=== PATIENT | female | born 1970 | race African-American/Black ===

== ENCOUNTER 2017-07-02 16:03 | Outpatient (CLI) | payer OTHER | END 2017-07-02 16:04 | disposition home or self-care (01) | LOC: BICMAMMO 16:03 | PROVIDERS: ATTEND Physician Assistant | DX: Z12.31 Encounter for screening mammogram for malignant neoplasm of breast (principal) | CPT/HCPCS: 77063; 77067 ==

== ENCOUNTER 2018-05-02 09:43 | Emergency (ER) | payer OTHER ==
--- NOTE | 2018-05-02 10:49 | RAD ---
PORTABLE CHEST: Date: 05/02/18 PROVIDED CLINICAL HISTORY: Chest pain. FINDINGS: No comparisons. Cardiac and mediastinal silhouette is within normal limits. Lungs appear clear. No pleural fluid or p neumothorax apparent. IMPRESSION: No evidence for an acute cardiopulmonary process. POS: OFF
[2018-05-02 10:59] LABS: #Basophils 0.1 thou/uL (0.0-0.2); #Eosinphils 0.2 thou/uL (0.0-0.7); #Lymphocytes 3.2 thou/uL (1.20-3.40); #Monocytes 0.4 thou/uL (0.11-0.59); #Neutrophils 6.9 thou/uL (1.40-6.50); %Basophils 0.6 % (0.0-1.0); %Eosinophils 1.5 % (0.0-10.0); %Lymphocytes 30.1 % (21.0-51.0); %Monocytes 3.5 % (0.0-10.0); %Neutrophils 64.3 % (42.0-75.0); Hemoglobin 12.1 g/dL (12.0-16.0); Mean Corpuscular HGB CONC 31.8 g/dL (32.0-36.0); Mean Corpuscular Hemoglobin 31.6 pg (27.0-31.0); Mean Corpuscular Volume 99.4 fL (78.0-98.0); Mean Platelet Volume 6.7 fL (7.4-10.4); Platelet Count 422 thou/uL (130-400); RBC Distribution Width 12.3 % (11.5-14.5); Red Blood Cell (RBC) Count 3.82 mill/uL (4.20-5.40); White Blood Cell (WBC) Count 10.7 thou/uL (4.8-10.8)
[2018-05-02 11:27] LABS: ALT (SGPT) 17 U/L (8-55); AST (SGOT) 19 U/L (5-34); Albumin 3.9 g/dL (3.5-5.0); Alkaline Phosphatase 83 U/L (40-150); Anion Gap 11 mmol/L (10-20); BUN (Urea Nitrogen) 13 mg/dL (7.0-18.7); Bilirubin, Total 0.3 mg/dL (0.2-1.2); Calc. Creatinine Clearance 0 mL/min (70-130); Calcium 9.5 mg/dL (7.8-10.44); Carbon Dioxide 25 mmol/L (22-29); Chloride 107 mmol/L (98-107); Estimated GFR-MDRD Greater than 90; Globulin 3.9 g/dL (2.4-3.5); Glucose 99 mg/dL (70-105); Potassium 3.8 mmol/L (3.5-5.1); Protein, Total 7.8 g/dL (6.0-8.3); Sodium 139 mmol/L (136-145)
[2018-05-02] MEDS ORDERED: ISOVUE-370 76%-LOCM 1 ML ONE (12:04)
[2018-05-02 13:05] LABS: Troponin I Less than 0.010 ng/mL (< 0.028)
--- NOTE | 2018-05-02 13:35 | CT ---
CTA CHEST WITH CONTRAST AND 3D VOLUME RENDERING: INDICATION: Cough, persistent chest pain. FINDINGS: There is no large, central filling defect of the pulmonary arteries. Aortic contour is of normal iván iber without aneurysm, where visualized. There is a 6 mm noncalcified nodule of the left lung abutti ng the major fissure, within the superior segment left lower lobe. No effusion or pneumothorax. The re is scattered osseous degenerative change. IMPRESSION: 1. No acute pulmonary embolus. 2. 6 mm left lower lobe pulmonary nodule. Six-month followup CT thorax is warranted to provide cont inued assessment. POS: TOAN
--- NOTE | 2018-05-04 16:35 | EKG ---
Test Reason : Blood Pressure : / mmHG Vent. Rate : 085 BPM Atrial Rate : 085 BPM P-R Int : 146 ms QRS Dur : 092 ms QT Int : 398 ms P-R-T Axes : 044 008 009 degrees QTc Int : 473 ms Normal sinus rhythm Possible Left atrial enlargement Borderline ECG Confirmed by HOME LINDO DO ([id number]), editor trade journal LAUREN MALONE ([id number]) on 05/04/2018 4:34:38 PM Referred By: Confirmed By:HOME LINDO DO
== END 2018-05-02 13:45 | disposition home or self-care (01) ==
LOC: ERS 09:43
DX: I10 Essential (primary) hypertension (principal); R91.1 Solitary pulmonary nodule
CPT/HCPCS: 36415; 71045; 71275; 80053; 84484; 85025; 85379; 93005; Q9966

== ENCOUNTER 2018-11-11 12:17 | Outpatient (CLI) | payer OTHER ==
--- NOTE | 2018-11-11 13:17 | CT ---
CT CHEST WITHOUT CONTRAST: 11/11/2018 PROVIDED CLINICAL HISTORY: Pulmonary nodule. CORRELATION: CT angiogram chest performed 05/01/2018. FINDINGS: The heart, pericardium and great vessels are suboptimally evaluated in the absence of IV contrast mat erial but demonstrated an unremarkable unenhanced CT appearance. There is no evidence for thoracic lymph node enlargement with limitations due to lack of IV contrast. The airway appears patent and of normal caliber. There is no pleural fluid or pneumothorax apparent. Stable sub-6 mm average axial dimension superior segment left lower lobe pulmonary nodule abutting th e major fissure. Additional smaller, noncalcified nodules are occasionally seen in subpleural locati ons elsewhere, also stable. The lungs are free or significant opacity. The visualized portions of the upper abdomen demonstrate an unremarkable unenhanced CT appearance wit h the exception of post cholecystectomy change. The osseous structures demonstrate no concerning osteoblastic or osteolytic lesions. Thoracic spine disk degenerative changes are seen. IMPRESSION: Stable sub-6 mm average axial dimension, noncalcified left lower lobe pulmonary nodule. This does no t require followup in a low risk patient, per Fleischner criteria. POS: TPC
== END 2018-11-11 12:18 | disposition home or self-care (01) ==
LOC: BICCT 12:17
PROVIDERS: ATTEND Internal Medicine Critical Care Medicine
DX: R91.1 Solitary pulmonary nodule (principal)
CPT/HCPCS: 71250

== ENCOUNTER 2019-11-12 12:17 | Outpatient (CLI) | payer OTHER ==
--- NOTE | 2019-11-12 13:46 | CT ---
CT CHEST WITHOUT CONTRAST CLINICAL INDICATION: Follow-up pulmonary nodules. COMPARISON: Studies on 11/11/2018 and 05/02/2018 FINDINGS: Aorta: Limited evaluation due to lack of intravenous contrast, the thoracic aorta is normal in calibe r. Lungs: There is a stable pleural-based 6 mm nodular density along the superior aspect of the major fi ssure measuring 6 mm. This measured just less than 6 mm on the prior exam which may have been related to slice selection. 2 additional much smaller subcentimeter pleural-based nodular densities a re seen along the major fissure with a stable pleural-based less than 6 mm pleural-based nodular density anterolateral right upper lobe. A tiny approximately 3 mm pulmonary nodule is again seen at t he right lateral costophrenic angle. There has been interval development of minimal patchy nodular densities within the right upper lobe w hich may represent infectious or inflammatory process. Mild atelectasis is present at the posteromedial right lung base. No new pulmonary nodule or mass is seen, and there is no pleural effusion identified. Mediastinum: Limited evaluation due to lack of intravenous contrast, no enlarged lymph nodes are appr eciated. Thyroid gland: Calcified left lobe of thyroid gland. Thyroid gland is not well assessed due to overly ing artifact, there is suggestion of a small nodule in the left lobe of the thyroid gland measuring approximately 8 mm. Nonemergent thyroid ultrasound is recommended. Osseous structures: Mild degenerative changes in the spine. No suspicious lytic or sclerotic osseous lesion is identified. Chest wall: No abnormality visualized. Upper abdomen: Postcholecystectomy changes. IMPRESSION: 1. Stable 6 mm pleural-based nodule left lower lobe along the major fissure with additional much smal ler less than 6 mm nodular densities along the major fissure and anterolateral right lung base with a very tiny 3 mm pulmonary nodule right lung base. There has been no interval change in size of the n odular densities. Given that the nodule adjacent to the major fissure is just greater than 6 mm on the current examination, on additional one-year follow-up evaluation is recommended. 2. Hypodense lesion left lobe of thyroid gland. Thyroid ultrasound is recommended. 3. Ill-defined nodular groundglass densities in the right upper lobe which were not seen on the prior study and may be related to an infectious or inflammatory process.
== END 2019-11-12 12:18 | disposition home or self-care (01) ==
LOC: BICCT 12:17
PROVIDERS: ATTEND Internal Medicine Critical Care Medicine
DX: R91.8 Other nonspecific abnormal finding of lung field (principal); E07.9 Disorder of thyroid, unspecified
CPT/HCPCS: 71250

== ENCOUNTER 2019-12-23 07:00 | Outpatient (CLI) | payer OTHER ==
[2019-12-24 12:57] LABS: SARS-CoV-2 MS2 Positive; SARS-CoV-2 N Gene Negative; SARS-CoV-2 S Gene Negative; SARS-CoV-2 by NAA Not Detected (NotDetected); SARS-CoV-2 orf1ab Negative
== END 2019-12-23 07:01 | disposition home or self-care (01) ==
LOC: LABBT 07:00
PROVIDERS: ATTEND Internal Medicine Gastroenterology
DX: Z20.828 Contact with and (suspected) exposure to other viral communicable diseases (principal)
CPT/HCPCS: 87635; U0003

== ENCOUNTER 2019-12-26 05:59 | Day surgery (SDC) | payer OTHER ==
[2019-12-25 12:32] VITALS: BMI 46.6
--- NOTE | 2019-12-26 09:43 | OP ---
DATE OF PROCEDURE: 12/26/2019 PREPROCEDURE DIAGNOSIS: Colorectal cancer screening, average risk. POSTPROCEDURE DIAGNOSIS: Normal colonoscopy. RECOMMENDATIONS: Consider repeat colonoscopy in 10 years. ANESTHESIA: TIVA. PROCEDURE IN DETAIL: After the patient was informed of the risks, benefits, and possible complications of endoscopy including perforation, reaction to medication, and aspiration, informed consent was obtained. The patient was brought to endoscopy suite, where she was sedated in gradual fashion. Once she was comfortable, a rectal examination was performed, which was normal. The scope was advanced to the anal canal through the colon to the cecum, which was identified by the ileocecal valve and appendiceal orifice. The prep was good. Forward and retroflexed views in the right colon revealed no abnormalities. The remainder of the colon was normal. There were a few diverticula in the sigmoid colon. Retroflexed views in the rectum were normal. There were no evidence of polyps or masses seen. The scope was removed. The patient tolerated the procedure well. There were no complications. Job ID: [id number]
[2019-12-26] MEDS ORDERED: Lidocaine 1% PF 5 ML VIAL ONE (10:03)
[2019-12-26] MEDS ORDERED: PROPOFOL 200 MG/20 ML VIAL ONE (10:04)
== END 2019-12-26 09:45 | disposition home or self-care (01) ==
LOC: SDC 05:59
PROVIDERS: ATTEND Internal Medicine Gastroenterology
PROC: 0DJD8ZZ Inspection of Lower Intestinal Tract, Via Natural or Artificial Opening Endoscopic (ICD-10-PCS; principal; 2019-12-26)
DX: Z12.11 Encounter for screening for malignant neoplasm of colon (principal); K57.30 Diverticulosis of large intestine without perforation or abscess without bleeding; I10 Essential (primary) hypertension; Z79.899 Other long term (current) drug therapy
CPT/HCPCS: J2704

== ENCOUNTER 2020-10-28 11:06 | Outpatient (CLI) | payer OTHER ==
[2020-10-28 12:49] LABS: #Basophils 0.1 10x3/uL (0.0-0.2); #Eosinphils 0.2 10x3/uL (0.0-0.5); #Monocytes 0.4 10x3/uL (0.0-1.1); #Neutrophils 6.3 10x3/uL (1.5-8.4); %Basophils 0.6 % (0.0-2.0); %Eosinophils 2.2 % (0.0-6.0); %Lymphocytes 33.5 % (18.0-47.0); %Monocytes 3.7 % (0.0-10.0); %Neutrophils 59.3 % (40.0-75.0); Hemoglobin 11.9 g/dL (12.0-15.5); Mean Corpuscular Hemoglobin 31.7 pg (27.0-33.0); Mean Corpuscular Volume 96.3 fl (81.6-98.3); Mean Platelet Volume 9.5 fl (7.4-10.4); Platelet Count 398 10x3/uL (150-450); RBC Distribution Width 13.6 % (11.5-14.5); Red Blood Cell (RBC) Count 3.75 10x6/uL (3.90-5.03); White Blood Cell (WBC) Count 10.7 10x3/uL (3.5-10.5)
[2020-10-28 23:34] LABS: SARS-CoV-2 PCR by NAA Not Detected (NotDetected)
== END 2020-10-28 11:07 | disposition home or self-care (01) ==
LOC: LABBT 11:06
PROVIDERS: ATTEND Orthopaedic Surgery Hand Surgery
DX: Z01.812 Encounter for preprocedural laboratory examination (principal); G56.01 Carpal tunnel syndrome, right upper limb; Z20.822 Contact with and (suspected) exposure to COVID-19
CPT/HCPCS: 85025; U0003; U0005

== ENCOUNTER 2020-11-01 12:46 | Day surgery (SDC) | payer OTHER ==
[2020-10-29 09:51] VITALS: BMI 45.8
[2020-11-01] MEDS ORDERED: Fentanyl 100 MCG/2 ML VIAL ONE (15:07)
[2020-11-01] MEDS ORDERED: Midazolam HCl 2 mg/2 ml Vial ONE (15:07)
[2020-11-01] MEDS ORDERED: Dexamethasone 20 MG/5 ML VIAL ONE (15:33)
[2020-11-01] MEDS ORDERED: Ondansetron PF 4 MG/2 ML Vial ONE (15:33)
[2020-11-01] MEDS ORDERED: PROPOFOL 200 MG/20 ML VIAL ONE (15:33)
[2020-11-01] MEDS ORDERED: Lidocaine 1% PF 5 ML VIAL ONE (15:33)
[2020-11-01] MEDS ORDERED: Ketorolac Tromethamine 30 MG/ML VIAL ONE (16:47)
[2020-11-01] MEDS ORDERED: HYDROcodone/Acetaminophen 5/325 mg Tablet ONE (17:41)
== END 2020-11-01 17:52 | disposition home or self-care (01) ==
LOC: SDC 12:46
PROVIDERS: ATTEND Orthopaedic Surgery Hand Surgery
PROC: 01N50ZZ Release Median Nerve, Open Approach (ICD-10-PCS; principal; 2020-11-01)
DX: G56.01 Carpal tunnel syndrome, right upper limb (principal); G56.21 Lesion of ulnar nerve, right upper limb; G54.0 Brachial plexus disorders; I10 Essential (primary) hypertension; Z79.899 Other long term (current) drug therapy
CPT/HCPCS: J0690; J1100; J1885; J2250; J2405; J2704; J3010

== ENCOUNTER 2021-01-03 08:32 | Outpatient (CLI) | payer OTHER | END 2021-01-03 08:33 | disposition home or self-care (01) | LOC: BICCT 08:32 | PROVIDERS: ATTEND Internal Medicine Critical Care Medicine | DX: Z12.31 Encounter for screening mammogram for malignant neoplasm of breast (principal); R91.8 Other nonspecific abnormal finding of lung field | CPT/HCPCS: 71250; 77063; 77067 ==

== ENCOUNTER 2022-06-19 11:42 | Outpatient (CLI) | payer BC | END 2022-06-19 11:43 | disposition home or self-care (01) | LOC: BICULT 11:42 | PROVIDERS: ATTEND Physician Assistant | DX: E04.2 Nontoxic multinodular goiter (principal) | CPT/HCPCS: 76536 ==

== ENCOUNTER 2023-01-02 09:03 | Outpatient (CLI) | payer BC | END 2023-01-02 09:04 | disposition home or self-care (01) | LOC: NM 09:03 | PROVIDERS: ATTEND Internal Medicine Endocrinology, Diabetes & Metabolism | DX: E05.80 Other thyrotoxicosis without thyrotoxic crisis or storm (principal); R94.6 Abnormal results of thyroid function studies | CPT/HCPCS: 78014; A9516 ==

== ENCOUNTER 2023-01-26 11:30 | Outpatient (CLI) | payer BC ==
[2023-01-26 12:44] LABS: BHCG - Serum Negative (NEGATIVE); Pregs Control Background? CLEAR/WHITE (CLR/WHITE); Pregs Control Bar Appear? YES (CONTROL BAR)
== END 2023-01-26 11:31 | disposition home or self-care (01) ==
LOC: NM 11:30
PROVIDERS: ATTEND Internal Medicine Endocrinology, Diabetes & Metabolism
DX: E05.00 Thyrotoxicosis with diffuse goiter without thyrotoxic crisis or storm (principal)
CPT/HCPCS: 79005; 84703; A9517

== ENCOUNTER 2023-02-07 09:48 | Outpatient (CLI) | payer BC | END 2023-02-07 09:49 | disposition home or self-care (01) | LOC: BICMAMMO 09:48 | PROVIDERS: ATTEND Physician Assistant | DX: Z12.31 Encounter for screening mammogram for malignant neoplasm of breast (principal) | CPT/HCPCS: 77063; 77067 ==

== ENCOUNTER 2024-04-14 13:56 | Outpatient (CLI) | payer BC | END 2024-04-14 13:57 | disposition home or self-care (01) | LOC: BICMAMMO 13:56 | PROVIDERS: ATTEND Family Medicine | DX: Z12.31 Encounter for screening mammogram for malignant neoplasm of breast (principal) | CPT/HCPCS: 77063; 77067 ==